=== PATIENT | male | born 1960 | race Caucasian/White ===

== ENCOUNTER 2018-10-07 19:55 | Emergency (ER) | payer OTHER ==
[2018-10-07 20:09] VITALS: BP 119/90
--- NOTE | 2018-10-07 20:24 | EDPHY ---
H & P Stated Complaint: Rt knee pain with spasm,post hamstring Time Seen by Provider: 10/07/18 20:12 HPI/ROS: Chief Complaint: Knee pain, leg pain HPI: 58-year-old male with a history of prior knee surgeries presenting with worsening pain in his right knee and leg. Patient actually states the pain starts at the bases buttocks and goes down the back of his leg and then wraps around to his knee. He has been doing a lot of gardening this weekend. No falls or injuries. Does have a history of some chronic back pain but no sciatic symptoms in the past. No knee injuries. He has had a arthroscopic surgery on that knee in the past. No swelling. No fevers or chills. He is not able to reproduce any pain in his knee by pushing on it. He is ambulating some discomfort. No numbness or weakness. No difficulty urinating. No fevers or chills. ROS: 10 systems were reviewed and were negative except those elements noted in the HPI. Social History: No smoking, no alcohol, no recreational drug use Family History: non-contributory Physical Exam: Gen: Awake, Alert, No Distress HEENT: Nose: no rhinorrhea Eyes: PERRLA, EOMI Mouth: Moist mucosa Neck: Supple, no JVD Chest: nontender, lungs clear to auscultation Heart: S1, S2 normal, no murmur Abd: Soft, non-tender, no guarding Back: no CVA tenderness, no midline tenderness Ext: no edema, non-tender Skin: no rash Neuro: CN II-XII intact, Sensation grossly intact, Strength 5/5 in bilateral upper and lower extremities - Personal History Current Tetanus Diphtheria and Acellular Pertussis (TDAP): Yes - Medical/Surgical History Hx Asthma: No Hx Chronic Respiratory Disease: No Hx Diabetes: No Hx Cardiac Disease: No Hx Renal Disease: No Hx Cirrhosis: No Hx Alcoholism: No Hx HIV/AIDS: No Hx Splenectomy or Spleen Trauma: No Other PMH: Med hx-anxiety/depression. Surg-rt testicle,oophorectomy,rt knee- orthoscope - Social History Smoking Status: Former smoker Constitutional: Initial Vital Signs Temperature (C) 37.1 C 10/07/18 20:03 Heart Rate 82 10/07/18 20:03 Respiratory Rate 16 10/07/18 20:03 Blood Pressure 119/90 H 10/07/18 20:03 O2 Sat (%) 98 10/07/18 20:03 O2 Delivery Mode Room Air Allergies/Adverse Reactions: Penicillins Allergy (Verified 11/08/12 10:47) Home Medications: Medication Instructions Recorded Inderal 20mg (*) 10/07/18 Metaxalone [Skelaxin] 800 mg PO TID PRN #10 tablet 10/07/18 Prozac 20 MG (*) 10/07/18 Medical Decision Making ED Course/Re-evaluation: 58-year-old male presenting with pain going down the back was like a wrap around his knee. Is not reproducible. Full range of motion. Is not tender. Symptoms consistent with sciatic nerve pain. He is completely neurologically intact pre does not have any red flags for acute cauda equina syndrome or epidural abscess. He is requesting muscle relaxer, specifically 6 Skelaxin. He says Flexeril makes him too sleepy. Were I am a prescription for short course. Follow up with primary care physician. Return for any concerns. Departure - Departure Disposition: Home, Routine, Self-Care Clinical Impression: Sciatica Condition: Good Instructions: Sciatica (ED), Lower Back Exercises (ED) Additional Instructions: Take ibuprofen, 600 mg every 8 hr. You may alternate with acetaminophen, 1000 mg every 8 hr. You may take the skeletal muscle relaxer as needed for additional pain relief. Follow up with primary care physician in 2-3 days for further evaluation. Referrals: Kt Coe, [Medical Doctor] - As per Instructions Prescriptions: Metaxalone [Skelaxin] 800 mg PO TID PRN #10 tablet PRN Reason: Pain, Severe
== END 2018-10-07 20:40 | disposition home or self-care (01) ==
LOC: CED 19:55
DX: M54.41 Lumbago with sciatica, right side (principal); Z87.891 Personal history of nicotine dependence
CPT/HCPCS: 99283-ER